=== PATIENT | male | born 1980 | race Caucasian/White ===

== ENCOUNTER 2020-12-12 11:26 | Emergency (ER) | payer MEDICARE, SELFPAY ==
[2020-12-12] VITALS (8 sets, daily range): BP systolic 121–132; BP diastolic 71–80; PULSE 72–94; RESP 14–25; TEMP 36.4; O2SAT 89–94; BMI 30.6
--- NOTE | 2020-12-12 12:16 | RAD_ITS ---
STUDY: X-RAY CHEST REASON FOR EXAM: Male, 40 years old. cough TECHNIQUE: AP COMPARISON: None. FINDINGS: EKG leads project over the chest. Lungs are underexpanded. Multilobar interstitial and groundglass opacities predominantly along the periphery of the mid and lower lung zones. There is no demonstrated pleural abnormality. Heart is mildly enlarged. Normal mediastinum and rishabh. Normal visualized pulmonary arteries. Normal visualized aortic arch and descending thoracic aorta. No acute bony process. There is no demonstrated abnormality of the visualized soft tissue structures of the upper abdomen. RAD/Chest 1 View (Portable) IMPRESSION: 1. Multilobar pulmonary infiltrates with features commonly reported with COVID pneumonia. Electronically Signed: Shaun Alatorre MD ([place]) at 13:24 EDT , Service support ,
--- NOTE | 2020-12-12 12:16 | EX.ED.DYSGE1 ---
HPI <Dr. Candy Lewis MD - Last Filed: 12/12/20 18:56> History of Present Illness Chief Complaint: Weakness Informant: patient and family Onset/Context/Timing Onset: Days Current Severity: Moderate Maximum Severity: Moderate Narrative Narrative: Patient presents secondary to generalized weakness secondary to Covid. He developed symptoms of Covid on November 28 and tested positive on December 03. Family states he just been laying on the couch. He has not been eating or drinking much. They state he has had a 25 pound weight loss since he became ill. Patient has not checked his temperature but reportedly will get hot and then cold. He has not had much of a cough, but when he does he brings up clear sputum. No vomiting or diarrhea. PFSH <Dr. Candy Lewis MD - Last Filed: 12/12/20 18:56> PFSH Medical History no medical history no medical history Home Medications Tylenol 1 g PO/SL X1 12/12/20 [History Last Taken Unknown] dexamethasone [Decadron] 6 mg PO DAILY #9 tab 12/12/20 [Rx Last Taken Unknown] Allergy/AdvReac Type Severity Reaction Status Date / Time No Known Allergies Allergy Verified 12/12/20 11:58 Social History Smoking Status: Former smoker ROS <Dr. Candy Lewis MD - Last Filed: 12/12/20 18:56> ROS ED Constitutional Constitutional ED: Reports chills, fever(s) and subjective Eyes Eyes: Denies change in vision ENT ENT ED: Denies sore throat Cardiovascular Cardiovascular: Denies chest pain Respiratory/Chest Respiratory/Chest: Reports cough and sputum; Denies dyspnea Gastrointestinal Gastrointestinal: Denies abdominal pain, diarrhea, nausea or vomiting Genitourinary Genitourinary ED: Denies dysuria Musculoskeletal Musculoskeletal: Reports myalgias; Denies back pain Integumentary Denies rash Neurologic Neurologic: Reports weakness; Denies headache(s) Allergic/Immunologic Allergic/Immunologic ED: Denies urticaria EXAM <Dr. Candy Lewis MD - Last Filed: 12/12/20 18:56> Physical Exam Const Vital Signs: 12/12/20 11:28 12/12/20 12:02 12/12/20 12:05 Temperature 97.5 F L Temperature Source Temporal Pulse Rate 94 88 Respiratory Rate 14 20 H Respiratory Effort Normal Respiratory Depth Normal Respiratory Pattern Normal Blood Pressure 121/79 H 124/71 H Blood Pressure Mean 93 88 Pulse Ox 93 93 Pulse Ox [AMBULATING on Room Air] Pulse Ox [AMBULATING with Oxygen #1] Pulse Ox [At REST on Room Air] Oxygen Delivery Method Room Air Room Air Room Air Oxygen Flow Rate (L/min) [AMBULATING with Oxygen #1] 12/12/20 14:00 12/12/20 14:53 12/12/20 15:30 Temperature Temperature Source Pulse Rate 72 80 Respiratory Rate 25 H 21 H Respiratory Effort Respiratory Depth Respiratory Pattern Blood Pressure 132/80 H Blood Pressure Mean 97 Pulse Ox 94 93 Pulse Ox [AMBULATING on Room Air] 89 Pulse Ox [AMBULATING with Oxygen #1] 93 Pulse Ox [At REST on Room Air] 93 Oxygen Delivery Method Room Air Room Air Oxygen Flow Rate (L/min) [AMBULATING with Oxygen #1] 2 12/12/20 15:37 12/12/20 16:41 Temperature Temperature Source Pulse Rate 75 84 Respiratory Rate 19 H 22 H Respiratory Effort Respiratory Depth Respiratory Pattern Blood Pressure 123/79 H 129/72 H Blood Pressure Mean 93 Pulse Ox 93 94 Pulse Ox [AMBULATING on Room Air] Pulse Ox [AMBULATING with Oxygen #1] Pulse Ox [At REST on Room Air] Oxygen Delivery Method Room Air Oxygen Flow Rate (L/min) [AMBULATING with Oxygen #1] Positive well nourished and well developed General Appearance ED: well developed HEENT Reports normocephalic and head/scalp atraumatic Eyes PERRL and EOMs intact bilaterally Neck supple Chest Wall inspection of chest normal and palpation of chest normal Resp normal respiratory effort and clear to auscultation bilaterally Cardio regular rate and regular rhythm GI non-tender Auscultation: hypoactive bowel sounds Palpation: soft Extremity normal to inspection Neuro oriented x3 and no sensory deficits noted Sensorium / Orientation: alert Motor Exam: strength 5/5 throughout Psych mental status grossly normal Skin no rashes or lesions noted <Dr. Flaco Chew, DO - Last Filed: 12/12/20 23:50> Physical Exam Const Vital Signs: 12/12/20 11:28 12/12/20 12:02 12/12/20 12:05 Temperature 97.5 F L Temperature Source Temporal Pulse Rate 94 88 Respiratory Rate 14 20 H Respiratory Effort Normal Respiratory Depth Normal Respiratory Pattern Normal Blood Pressure 121/79 H 124/71 H Blood Pressure Mean 93 88 Pulse Ox 93 93 Pulse Ox [AMBULATING on Room Air] Pulse Ox [AMBULATING with Oxygen #1] Pulse Ox [At REST on Room Air] Oxygen Delivery Method Room Air Room Air Room Air Oxygen Flow Rate (L/min) [AMBULATING with Oxygen #1] 12/12/20 14:00 12/12/20 14:53 12/12/20 15:30 Temperature Temperature Source Pulse Rate 72 80 Respiratory Rate 25 H 21 H Respiratory Effort Respiratory Depth Respiratory Pattern Blood Pressure 132/80 H Blood Pressure Mean 97 Pulse Ox 94 93 Pulse Ox [AMBULATING on Room Air] 89 Pulse Ox [AMBULATING with Oxygen #1] 93 Pulse Ox [At REST on Room Air] 93 Oxygen Delivery Method Room Air Room Air Oxygen Flow Rate (L/min) [AMBULATING with Oxygen #1] 2 12/12/20 15:37 12/12/20 16:41 Temperature Temperature Source Pulse Rate 75 84 Respiratory Rate 19 H 22 H Respiratory Effort Respiratory Depth Respiratory Pattern Blood Pressure 123/79 H 129/72 H Blood Pressure Mean 93 Pulse Ox 93 94 Pulse Ox [AMBULATING on Room Air] Pulse Ox [AMBULATING with Oxygen #1] Pulse Ox [At REST on Room Air] Oxygen Delivery Method Room Air Oxygen Flow Rate (L/min) [AMBULATING with Oxygen #1] MDM <Dr. Candy Lewis MD - Last Filed: 12/12/20 18:56> [facility] Narrative Medical decision making narrative: Lab work and chest x-ray ordered. Patient given 500 cc IV fluid bolus. Lab Data Attestation: I reviewed the patient's lab results. Labs: Laboratory Results - last 24 hr 12/12/20 12/12/20 12/12/20 12:30 12:30 12:30 WBC 9.9 RBC 5.09 Hgb 15.6 Hct 46.8 MCV 91.9 MCH 30.6 MCHC 33.3 RDW Std Deviation 41.9 RDW Coeff of Michela 12.3 Plt Count 437 MPV 9.4 Immature Gran % (Auto) 1.900 H Neut % (Auto) 77.8 H Lymph % (Auto) 10.9 L Kings % (Auto) 8.1 Eos % (Auto) 0.8 Baso % (Auto) 0.5 Absolute Neuts (auto) 7.7 Absolute Lymphs (auto) 1.08 Nucleated RBC % 0 D-Dimer Quant (PE/DVT) 1.28 H* Sodium 135 L Potassium 3.6 Chloride 100 Carbon Dioxide 28.0 Anion Gap 7 BUN 10 Creatinine 0.84 Estim Creat Clear Calc 120.70 Est GFR (MDRD) Af Amer 129 Est GFR (MDRD) Non-Af 107 BUN/Creatinine Ratio 11.8 Glucose 114 H Lactic Acid Calcium 8.8 Total Bilirubin 1.10 H AST 37 ALT 85 H Alkaline Phosphatase 81 Total Protein 7.9 Albumin 2.9 L Globulin 5.0 H Albumin/Globulin Ratio 0.6 L 12/12/20 12:30 WBC RBC Hgb Hct MCV MCH MCHC RDW Std Deviation RDW Coeff of Michela Plt Count MPV Immature Gran % (Auto) Neut % (Auto) Lymph % (Auto) Kings % (Auto) Eos % (Auto) Baso % (Auto) Absolute Neuts (auto) Absolute Lymphs (auto) Nucleated RBC % D-Dimer Quant (PE/DVT) Sodium Potassium Chloride Carbon Dioxide Anion Gap BUN Creatinine Estim Creat Clear Calc Est GFR (MDRD) Af Amer Est GFR (MDRD) Non-Af BUN/Creatinine Ratio Glucose Lactic Acid 1.2 Calcium Total Bilirubin AST ALT Alkaline Phosphatase Total Protein Albumin Globulin Albumin/Globulin Ratio Radiography Chest X-Ray - ED: 1 View, Read by ED Physician, Right Infiltrate and Left Infiltrate Diagnostic Testing: Radiology Impression Chest X-Ray 12/12/20 12:16 IMPRESSION: 1. Multilobar pulmonary infiltrates with features commonly reported with COVID pneumonia. Electronically Signed: Shaun Alatorre MD ([place]) at 13:24 EDT , Service support , Chest CTA 12/12/20 13:12 IMPRESSION: No demonstrated PE, or thoracic aortic aneurysm or dissection Diffuse interstitial and airspace opacifications in both lung lees with dependent atelectasis. Pattern of opacification suggests Covid pneumonia. Electronically Signed: Red Ashraf MD at 15:11 EDT , Service support , Treatment and Re-Evaluation Comments:: Test results discussed with patient and family at bedside. Chest x-ray per my interpretation does reveal peripheral infiltrates. CTA reveals no evidence of PE. Patient will be ambulated to check his oxygen saturations. This be followed by oncoming physician. <Dr. Flaco Chew, DO - Last Filed: 12/12/20 23:50> [facility] Narrative Medical decision making narrative: 1630: LISBETH. Patient signed out to me. CT scan negative for PE. Patient ambulated pulse ox briefly at 89% however it right back up per nursing. He was started on Decadron for 10 days first dose in the ED for pulse ox less than 94%. Currently is not a candidate for oxygen as it is greater than 88. He will continue oral hydration. Return precautions discussed. He is 14 days and the symptoms therefore he is not a candidate for Abs or antiviral treatment at this time. They will continue to monitor his pulse ox at home. Return precautions. All questions were answered. Lab Data Attestation: I reviewed the patient's lab results. Labs: Laboratory Results - last 24 hr 12/12/20 12/12/20 12/12/20 12:30 12:30 12:30 WBC 9.9 RBC 5.09 Hgb 15.6 Hct 46.8 MCV 91.9 MCH 30.6 MCHC 33.3 RDW Std Deviation 41.9 RDW Coeff of Michela 12.3 Plt Count 437 MPV 9.4 Immature Gran % (Auto) 1.900 H Neut % (Auto) 77.8 H Lymph % (Auto) 10.9 L Kings % (Auto) 8.1 Eos % (Auto) 0.8 Baso % (Auto) 0.5 Absolute Neuts (auto) 7.7 Absolute Lymphs (auto) 1.08 Nucleated RBC % 0 D-Dimer Quant (PE/DVT) 1.28 H* Sodium 135 L Potassium 3.6 Chloride 100 Carbon Dioxide 28.0 Anion Gap 7 BUN 10 Creatinine 0.84 Estim Creat Clear Calc 120.70 Est GFR (MDRD) Af Amer 129 Est GFR (MDRD) Non-Af 107 BUN/Creatinine Ratio 11.8 Glucose 114 H Lactic Acid Calcium 8.8 Total Bilirubin 1.10 H AST 37 ALT 85 H Alkaline Phosphatase 81 Total Protein 7.9 Albumin 2.9 L Globulin 5.0 H Albumin/Globulin Ratio 0.6 L 10/06/21 12:30 WBC RBC Hgb Hct MCV MCH MCHC RDW Std Deviation RDW Coeff of Michela Plt Count MPV Immature Gran % (Auto) Neut % (Auto) Lymph % (Auto) Kings % (Auto) Eos % (Auto) Baso % (Auto) Absolute Neuts (auto) Absolute Lymphs (auto) Nucleated RBC % D-Dimer Quant (PE/DVT) Sodium Potassium Chloride Carbon Dioxide Anion Gap BUN Creatinine Estim Creat Clear Calc Est GFR (MDRD) Af Amer Est GFR (MDRD) Non-Af BUN/Creatinine Ratio Glucose Lactic Acid 1.2 Calcium Total Bilirubin AST ALT Alkaline Phosphatase Total Protein Albumin Globulin Albumin/Globulin Ratio Radiography Diagnostic Testing: Radiology Impression Chest X-Ray 12/12/20 12:16 IMPRESSION: 1. Multilobar pulmonary infiltrates with features commonly reported with COVID pneumonia. Electronically Signed: Shaun Alatorre MD ([place]) at 13:24 EDT , Service support , Chest CTA 12/12/20 13:12 IMPRESSION: No demonstrated PE, or thoracic aortic aneurysm or dissection Diffuse interstitial and airspace opacifications in both lung lees with dependent atelectasis. Pattern of opacification suggests Covid pneumonia. Electronically Signed: Red Ashraf MD at 15:11 EDT , Service support , Discharge Plan Triage Chief Complaint: Weakness ED Provider: Candy Lewis Dx/Rx/DC Orders Clinical Impression: COVID-19 Instructions: Coronavirus Disease 2019 (COVID-19): Overview, Coronavirus Disease 2019 (COVID-19): Caring for Yourself or Others Prescriptions: New dexamethasone [Decadron] 6 mg tablet 6 mg PO DAILY Qty: 9 RF: 0 No Action Tylenol 1 g PO/SL X1 RF: 0 Primary Care Provider: Care Physician,No Primary Referrals: Stacie Arcos [NON-STAFF] - 1 Week Care Physician,No Primary [Primary Care Provider] - Activity Restrictions/Additional Instructions: Your CAT scan negative for blood clots. Continue the steroids. Continue oral hydration. Return if any worsening symptoms. Disposition Disposition: Home, Self Care Discharge Date/Time: 12/12/20 16:53
[2020-12-12 12:47] LABS: Absolute Lymphocyte Count 1.08 X10^3/uL (0.83-4.51); Absolute Neutrophil Count 7.7 X10^3/uL (2.0-7.7); Basophil# 0.05 X10^3/uL; Basophil% 0.5 % (0-1); Eosinophil# 0.08 X10^3/uL; Eosinophils% 0.8 % (0-5); Hematocrit 46.8 % (40-54); Hemoglobin 15.6 g/dL (13.0-16.5); Lymphocyte # 1.08 X10^3/ul (0.83-4.51); Lymphocyte % 10.9 % (19-41); Mean Corp Hgb Conc 33.3 g/dL (32-36); Mean Corpuscular Hgb 30.6 pg (27.0-32.0); Mean Corpuscular Volume 91.9 fL (80-94); Mean Platelet Vol. 9.4 fl (6.2-12.0); Monocyte% 8.1 % (0-10); NRBC Flagged by Analyzer 0 % (0-5); Neutrophil # 7.69 X10^3/uL (2.7-7.7); Neutrophil % 77.8 % (47-70); Platelet Count 437 K/mm3 (150-450); RBC Distribution Width CV 12.3 % (11.6-14.6); RBC Distribution Width SD 41.9 fl (35.1-43.9); Red Blood Count 5.09 M/mm3 (4.6-6.2); White Blood Count 9.9 K/mm3 (4.4-11.0)
[2020-12-12 13:07] LABS: ALB/GLOB Ratio 0.6 RATIO (0.9-2.4); AST(SGOT) 37 U/L (15-37); Alanine Aminotransfer ALT/SGPT 85 U/L (16-61); Albumin, Serum 2.9 g/dL (3.2-5.0); Alkaline Phosphatase 81 U/L (45-117); Anion Gap 7 (5-15); BUN 10 mg/dL (7-18); BUN/Creat Ratio 11.8 RATIO (10-20); Calcium,Total 8.8 mg/dL (8.5-10.1); Chloride 100 mmol/L (98-107); Creatinine, Serum 0.84 mg/dL (0.70-1.30); EST Glomerular Filtration Rate 107 mL/min (>60); Est Glom Filt Rate - Afr Amer 129 mL/min (>60); Glucose 114 mg/dL (74-106); Potassium 3.6 mmol/L (3.5-5.1); Protein, Total 7.9 g/dL (6.4-8.2); Sodium Level 135 mmol/L (136-145)
[2020-12-12 13:09] LABS: D-Dimer Quantitative (DVT/PE) 1.28 FEU/ug/m (0.27-0.49)
--- NOTE | 2020-12-12 13:12 | CT_ITS ---
STUDY: CTA CHEST REASON FOR EXAM: Male, 40 years old. Shortness of breath, fever, elevated d-dimer RADIATION DOSAGE (If Supplied By Facility): CTDIvol = ( 12.29 ) mGy, DLP = ( 514.54 ) mGycm TECHNIQUE: The examination was performed with the intravenous administration of IV 100mL Isovue-370. Post-processing of the angiographic images was performed, with multiplanar reformation and 3D reconstruction. Individualized dose optimization techniques were used for this CT. COMPARISON: None. FINDINGS: Normal enhancement of the main pulmonary artery and right and left pulmonary arteries. Normal enhancement of the bilateral peripheral pulmonary arteries. There is no demonstrated pulmonary embolism. Normal thoracic aorta and visualized great vessels. There is no demonstrated aortic dissection. Normal heart and pericardium. Normal mediastinum. Normal hilar regions. Normal visualized trachea and bronchi. The lungs are well expanded. Diffuse interstitial and airspace opacifications in both lung lees without effusions. This pattern of opacification is most consistent with and suspicious for Covid pneumonia. Normal pleura. Normal chest wall structures. Normal osseous structures. Normal visualized upper abdomen. CT/CTA Chest W/WO Contrast IMPRESSION: No demonstrated PE, or thoracic aortic aneurysm or dissection Diffuse interstitial and airspace opacifications in both lung lees with dependent atelectasis. Pattern of opacification suggests Covid pneumonia. Electronically Signed: Red Ashraf MD at 15:11 EDT , Service support ,
[2020-12-12 13:24] LABS: Lactic Acid 1.2 mmol/L (0.4-1.9)
[2020-12-12] MEDS: dexAMETHasone 4 MG Tablet 6 MG PO (16:37)
== END 2020-12-12 16:53 | disposition home or self-care (01) ==
PROVIDERS: Emergency Provider Emergency Medicine
DX: U07.1 COVID-19 (principal); J12.82 Pneumonia due to coronavirus disease 2019; Z87.891 Personal history of nicotine dependence; Z79.52 Long term (current) use of systemic steroids
CPT/HCPCS: 71045; 71275; 80053; 83605; 85025; 85379; 87040; 99283; J7040; Q9967